=== PATIENT | male | born 1960 | race Caucasian/White ===

== ENCOUNTER 2020-08-30 16:18 | Emergency (ER) | payer OTHER ==
[~2020-08-30] VITALS: Ht 175.3 cm; Wt 129.7 kg
[2020-08-30 16:22] VITALS: BP 131/84
--- NOTE | 2020-08-30 16:25 | NUR ---
Patient ambulated to bed 11 with a steady gait.
--- NOTE | 2020-08-30 16:28 | NUR ---
Dr. Isabel at the bedside evaluating patient.
[2020-08-30] MEDS ORDERED: KETOROLAC 60 MG/2 ML VIAL IM ONE (16:30)
--- NOTE | 2020-08-30 16:31 | NUR ---
Patient is a 60 y/o male c/o (L) shoulder pain x3 days. Patient denies recent injury or trauma. Patient states that it is a constant dull pain, 7/10 today, worse with movement; minimal relief with Tylenol and Ibuprofen. Patient reports (R) shoulder injury 40 years ago, no surgery. PMH denies NKA Rx denies
[2020-08-30] MEDS ORDERED: IBUP-2213 PO (16:45)
[2020-08-30] MEDS ORDERED: ACET-8386 PO (16:45)
[2020-08-30 16:56] VITALS: BP 131/84
--- NOTE | 2020-08-30 16:56 | NUR ---
Patient discharged with v/s stable. Written and verbal after care instructions given and explained. Patient alert, oriented and verbalized understanding of instructions. Ambulatory with steady gait. All questions addressed prior to discharge. ID band removed. Patient advised to follow up with PMD. Rx of Hydrocodone/Acetaminophen, Ibuprofen given. Patient educated on indication of medication including possible reaction and side effects. Opportunity to ask questions provided and answered.
== END 2020-08-30 16:56 | disposition home or self-care (01) ==
LOC: MED 16:18
DX: M54.6 Pain in thoracic spine (principal)
CPT/HCPCS: 96372; 99283; J1885